=== PATIENT | female | born 1960 | race Hispanic/Latino ===

== ENCOUNTER 2017-07-29 09:35 | Observation (INO) | payer SELFPAY ==
[~2017-07-29] VITALS: Ht 162.6 cm; Wt 89.8 kg
[~2017-07-29 09:35] MED LIST: LORTAB5 OR; NO MEDS
[2017-07-29 10:13] LABS: HEMOGLOBIN 13.1 g/dl (12.0-16.0); IMMATURE GRANULOCYTES 0.3 % (0.0-1.0); MEAN CELL VOLUME 90.3 fL CALC (80.0-100.0); MEAN CORPUSCULAR HGB 29.6 pG CALC (26.0-32.0); MEAN CORPUSCULAR HGB CONC 32.8 g/L CALC (32.0-36.0); NEUT# 3.19 thou/uL (2.00-7.15); RED BLOOD COUNT 4.43 mill/uL (4.20-5.60); RED CELL DISTRI WIDTH 12.7 % (11.5-15.5)
[2017-07-29 10:18] LABS: URINE BILIRUBIN - DIPSTICK NEGATIVE (NEGATIVE); URINE BLOOD DIPSTICK NEGATIVE (NEGATIVE); URINE CLARITY CLEAR; URINE COLOR YELLOW; URINE GLUCOSE - DIPSTICK NEGATIVE (NEGATIVE); URINE KETONE NEGATIVE (NEGATIVE); URINE LEUK ESTERASE NEGATIVE (NEGATIVE); URINE NITRITE - DIPSTICK NEGATIVE (Negative); URINE PH 6.5 (4.5-8.0); URINE PROTEIN - DIPSTICK NEGATIVE (NEG-TRACE); URINE SPECIFIC GRAVITY 1.015; URINE UROBILINOGEN - DIPSTICK 0.2 E.U./dL (0.2)
[2017-07-29] MEDS ORDERED: MAXZIDE-2537.5 MG/TA PO (10:35)
[2017-07-29 10:36] LABS: ALBUMIN 4.6 g/dL (3.2-5.0); ALKALINE PHOSPHATASE 90 u/l (38-126); ANION GAP 14 (6-22 (CALC)); BILIRUBIN, TOTAL 0.9 mg/dL (0.0-1.4); BUN 19 mg/dL (7-17); BUN/CREATININE RATIO 30 (12-20 (CALC)); CALCIUM 9.4 mg/dL (8.4-10.2); CARBON DIOXIDE 30 mmol/l (22-30); CHLORIDE 102 mmol/l (95-108); CREATININE 0.6 mg/dL (0.5-1.0); GFR > 60 ML/MIN (>=60 (CALC)); GFR FOR AFR.AMER. > 60 ML/MIN (>=60 (CALC)); GLUCOSE 110 mg/dL (65-105); POTASSIUM 3.6 mmol/l (3.5-5.1); SGOT/AST 27 u/l (14-36); SGPT/ALT 30 u/l (9-52); SODIUM 142 mmol/l (137-146)
[2017-07-29 10:46] LABS: MYOGLOBIN 25 ng/mL (0 - 62)
[2017-07-29 12:07] VITALS: BP 154/84
[2017-07-29 15:35] VITALS: BP 119/69
[2017-07-29 19:39] VITALS: BP 108/66
[2017-07-30 00:05] VITALS: BP 99/57
[2017-07-30 04:10] VITALS: BP 117/64
[2017-07-30 06:36] LABS: CHOLESTEROL HDL RATIO 3.5 (<4.4 (CALC))
[2017-07-30 08:54] VITALS: BP 111/59
[2017-07-30] MEDS ORDERED: ADLT ASA LOW81 MG PO (10:36)
[2017-07-30 11:14] VITALS: BP 116/69
== END 2017-07-30 12:30 | disposition home or self-care (01) | DRG 313 ==
LOC: ED 09:35 → ED-I 10:57 → ED 11:20 → MS2 11:21
PROVIDERS: Emergency Medicine; ADMIT Internal Medicine; ATTEND Internal Medicine
DX: R07.89 Other chest pain (principal); I10 Essential (primary) hypertension; R06.02 Shortness of breath; R42 Dizziness and giddiness; R00.1 Bradycardia, unspecified
CPT/HCPCS: G0378

== ENCOUNTER 2023-03-16 12:07 | Observation (INO) | payer SELFPAY ==
[2023-03-16] VITALS (9 sets, daily range): BP systolic 124–166; BP diastolic 61–87
[~2023-03-16] VITALS: Ht 162.6 cm; Wt 93.0 kg
[~2023-03-16 12:07] MED LIST changes: +ADLT ASA LOW81 MG PO; +MAXZIDE-2537.5 MG/TA PO
--- NOTE | 2023-03-16 12:07 | NUR ---
PT WALKED TO ROOM 8. NO DISTRESS NOTED. BREATHING IS EVEN AND NON LABORED
--- NOTE | 2023-03-16 12:30 | NUR ---
ASSISTED PT TO BR, NO DISTRESS OR COMPLAINTS AT THIS TIME.
[2023-03-16 12:47] LABS: BASO% 0.3 % (0-3); EOS% 2.5 % (0-8); HEMATOCRIT 41.4 % (37.0-47.0); HEMOGLOBIN 13.4 g/dl (12.0-16.0); IMMATURE GRANULOCYTES 0.2 % (0.0-5.0); MEAN CELL VOLUME 90.2 fL CALC (80.0-100.0); MEAN CORPUSCULAR HGB 29.2 pG CALC (26.0-32.0); MEAN CORPUSCULAR HGB CONC 32.4 g/dL CAL (32.0-36.0); MONO% 9.3 % (2-13); NEUT# 3.52 thou/uL (2.00-7.15); NEUT% 55.7 % (42-76); RED BLOOD COUNT 4.59 mill/uL (4.20-5.60); RED CELL DISTRI WIDTH 12.7 % (11.5-15.5)
[2023-03-16 13:02] LABS: ALBUMIN 4.3 g/dL (3.2-5.0); ALKALINE PHOSPHATASE 95 u/l (38-126); ANION GAP 10 (6-22 (CALC)); BILIRUBIN, TOTAL 0.6 mg/dL (0.02-1.3); BUN 14 mg/dL (8-23); BUN/CREATININE RATIO 25 (12-20 (CALC)); CARBON DIOXIDE 27 mmol/l (22-30); CHLORIDE 102 mmol/l (95-108); CREATININE 0.5 mg/dL (0.5-1.0); GFR FOR AFR.AMER. > 60 ML/MIN (>=60 (CALC)); GFR OTHER RACES > 60 ML/MIN (>=60 (CALC)); POTASSIUM 3.8 mmol/l (3.5-5.1); SGOT/AST 28 u/l (9-36); SODIUM 135 mmol/l (137-146); TOTAL PROTEIN 7.7 g/dL (6.3-8.2)
--- NOTE | 2023-03-16 13:30 | NUR ---
PT UP TO BR, NO COMPLAINTS AT THIS TIME STATED FEELING MUCH BETTER.
--- NOTE | 2023-03-16 14:30 | NUR ---
Reassessment of patient completed. No distress noted. NO COMPLAINTS AT THIS TIME.
--- NOTE | 2023-03-16 15:30 | NUR ---
Reassessment of patient completed. No distress noted.
[2023-03-16] MEDS ORDERED: PRAVASTATIN40 MG PO (15:46)
[2023-03-16] MEDS ORDERED: LOPRESSOR25 M1 PO (15:47)
[2023-03-16] MEDS ORDERED: ASPIRIN ENTERIC81 MG PO (15:47)
--- NOTE | 2023-03-16 16:14 | NUR ---
Reassessment of patient completed. No distress noted. GIVEN PO AND SNACK. NO COMPLAINTS AT THIS TIME.
--- NOTE | 2023-03-16 16:37 | NUR ---
PT ARRIVED VIA WC WITH CLINICAL EDUCATION CONSULTANT. PT ADMISSION ASSESSMENT COMPLETED. ORIENTATED PT TO ROOM AND CALL AVERY SYSTEM. TELE MONITOR IN PLACE, CONTINOUS MONITORING PER ED. TELE #7. EDUCATED PT IN CURRENT PLAN PF CARE. STATES NO PAIN AT THIS TIME. FALL/SAFTEY PRECAUTION IN PLACE. CALL LIGHT WITHIN REACH
--- NOTE | 2023-03-16 20:15 | NUR ---
RECEIVED BEDSIDE REPORT FROM DAYSHIFT NURSE. PT IS SITTING IN RECLINER. ADVISED PT OF CHANGE OF NURSE FOR THE NIGHT. PT STATES THAT NOT IN ANY PAIN OR DISCOMFORT AT MOMENT. CALL LIGHT WITHIN REACH AND SAFETY PRECAUTIONS IN PLACE.
[2023-03-17 00:09] VITALS: BP 111/57
--- NOTE | 2023-03-17 00:12 | NUR ---
PT IS SLEEPING IN BED. PT SHOWS NO SIGNS OF PAIN OR DISTRESS. CALL LIGHT WITHIN REACH AND SAFETY PRECAUTIONS IN PLACE.
--- NOTE | 2023-03-17 04:20 | NUR ---
PT IS SLEEPING IN BED COMFORTABLY. CALL LIGHT WITHIN REACH AND SAFETY PRECAUTIONS IN PLACE.
[2023-03-17 05:08] VITALS: BP 129/60
[2023-03-17 06:25] LABS: CHOLESTEROL HDL RATIO 4.7 (<4.4 (CALC)); MAGNESIUM 1.9 mg/dL (1.6-2.3)
[2023-03-17 06:45] VITALS: BP 122/61
[2023-03-17 07:04] VITALS: BP 122/61
--- NOTE | 2023-03-17 08:00 | NUR ---
PT SITTING IN BED EATING BREAKFAST. PT STATES NO PAIN/DIZZINESS. ASSESSMENT COMPLETED. TELE MONITOR IN PLACE, CONTINOUS MONITORING PER ED. UPDATED PT IN CURRENT PLAN OF CARE. PT INIDCATED UNDERSTANDING. FALL/SAFTEY PRECAUTIONIN PLACE. CALL LIGHT WITHIN REACH.
[2023-03-17 10:35] VITALS: BP 127/68
[2023-03-17 10:45] VITALS: BP 127/68
--- NOTE | 2023-03-17 12:11 | NUR ---
Discharge instructions given. Patient verbalizes understanding of same. Discharged in stable condition via Wheelchair to Home with staff. All belongings sent with pt.
== END 2023-03-17 12:11 | disposition home or self-care (01) | DRG 313 ==
LOC: ED 12:07 → MS2 15:42
PROVIDERS: Family Medicine; ADMIT Internal Medicine; ATTEND Internal Medicine
DX: R07.9 Chest pain, unspecified (principal); I10 Essential (primary) hypertension; E78.5 Hyperlipidemia, unspecified; Z20.822 Contact with and (suspected) exposure to COVID-19
CPT/HCPCS: G0378; J1650